=== PATIENT | female | born 1970 | race Caucasian/White ===

== ENCOUNTER 2019-02-13 11:08 | Emergency (ER) | payer OTHER ==
[2019-02-13] MEDS: ONDANSETRON (ODT) 4 MG TAB ODT (12:34)
[2019-02-13] MEDS: MECLIZINE 12.5 MG TAB PO (12:34)
[2019-02-13] MEDS: ACETAMINOPHEN 325 MG TAB PO (12:34)
[2019-02-13 12:38] LABS: URINE BLOOD (Dip) POC Trace-intact (NEGATIVE); URINE GLUCOSE (Dip) POC Negative (NEGATIVE); URINE KETONES (Dip) POC Trace (NEGATIVE); URINE LEUKOCYTE EST (Dip) POC Trace (NEGATIVE); URINE NITRITE (Dip) POC Negative (NEGATIVE); URINE TOTAL PROTEIN POC Negative (NEGATIVE)
[2019-02-13 12:38] LABS: URINE PH (Dip) POC 5.5 (5.0-8.5)
== END 2019-02-13 13:47 | disposition home or self-care (01) ==
LOC: FTE 11:08
DX: R42 Dizziness and giddiness (principal)
CPT/HCPCS: 70450; 81003; 81025; 99284-25